=== PATIENT | female | born 1965 | race Caucasian/White ===

== ENCOUNTER 2021-09-20 08:52 | Day surgery (SDC) | payer SELFPAY ==
[~2021-09-20] VITALS: Ht 157.5 cm; Wt 95.5 kg
--- NOTE | 2021-09-20 08:50 | NUR ---
MATERIAL DAMAGE ADJUSTER contacted for fluid orders. Orders recieved.
--- NOTE | 2021-09-20 09:10 | NUR ---
56 year old patient [place] [facility] [place]. Her daughter is present to translate. Height and weight obtained. Medications and HX reviewed. Patient stated having a prior hyster. Vitals obtained. Earrings removed and placed in plastic cup with lid, given to daughter. Patient was assisted with standing and then to bed, where she was assisted with removing her clothes. Clean gown is on, along with non-slip socks. Patient continues to wear a L leg brace, trina roll wrap is visible. RN attempted two IV starts, however was unsuccessful. Pressure and bandage applied. ARCHEOLOGY PROFESSOR contacted for IV assistance. Call traore is at bedside. Patient and her daughter verbalized understanding how to use it. Side rails x2. Warm blanket provided. First and last name + verified with the patient. Procedure verified and consent signed by the patient, who verbalized understanding the procedure.
[2021-09-20 09:43] VITALS: BP 135/54; PULSE 87
[2021-09-20] MEDS ORDERED: LEVEMIR100 U/ML SQ (09:57)
[2021-09-20] MEDS ORDERED: GLUCOTROL10 MG PO (09:58)
[2021-09-20] MEDS ORDERED: CELEXA 20MG20 MG/TAB PO (09:59)
[2021-09-20] MEDS ORDERED: HCTZ 25MG TAB25 MG PO (10:00)
[2021-09-20] MEDS ORDERED: GLUCOPHAGE1000 MG PO (10:00)
[2021-09-20] MEDS ORDERED: LOTENSIN20 MG PO (10:00)
[2021-09-20] MEDS ORDERED: PRAZOSIN PO (10:02)
[2021-09-20] MEDS ORDERED: NORCO 325 MG-7.1 TAB PO (10:04)
--- NOTE | 2021-09-20 10:42 | NUR ---
FILTROSE CRUSHER in to speak with the patient.
--- NOTE | 2021-09-20 13:19 | NUR ---
Patient was assisted to bedside commode. Then back to bed.
[2021-09-20 15:45] VITALS: BP 104/52; PULSE 88; TEMP 97.7
--- NOTE | 2021-09-20 15:45 | NUR ---
Patient arrived from the PACU escorted by UBALDO Rahman. Patient is alert and oriented x3. Verbal report obtained over the phone. O2 continues at 2 L via nasal cannula. Vitals obtained. Patient denies pain. Side rails x2. Call traore is at bedside. Patient requested Sprite and buttered toast. Will continue to monitor per protocol. Daughter is present.
[2021-09-20 16:00] VITALS: BP 113/58; PULSE 84
--- NOTE | 2021-09-20 16:00 | NUR ---
Patient is tolerating her Sprite and toast well. Vitals obtained.
[2021-09-20 16:06] VITALS: TEMP 98.3
[2021-09-20 16:15] VITALS: BP 120/80; PULSE 88
--- NOTE | 2021-09-20 16:15 | NUR ---
Vitals obtained. Patient requested assistance using the commode. Patient was assisted to bedside and then to the commode. Patient successfully voided. Patient expresssed desire to be discharged. IV was discontinued at this time. Catheter tip intact. Pressure dressing applied. No swelling or redness noted. The patient denied needing RN assistance changing.
--- NOTE | 2021-09-20 16:30 | NUR ---
Discharge instructions were reviewed, along with educational material. The patient verbalized understanding and signed the related paperwork. The patient was assisted into the wheelchair and escorted down to the patient entrence by UBALDO Patton. Her daughter has the discharge packet and the patients personal belonings in the white patient belongings bag. Patient was assisted into the back of their mini-van and secured her seatbelt. Her is driving. The patient was transferred into the care of her family.
== END 2021-09-20 17:00 | disposition home or self-care (01) ==
LOC: SDCO 08:52
DX: S82.032B Displaced transverse fracture of left patella, initial encounter for open fracture type I or II (principal); E10.9 Type 1 diabetes mellitus without complications; R03.0 Elevated blood-pressure reading, without diagnosis of hypertension; F32.A Depression, unspecified; E66.9 Obesity, unspecified; E78.5 Hyperlipidemia, unspecified; F17.210 Nicotine dependence, cigarettes, uncomplicated; W00.0XXA Fall on same level due to ice and snow, initial encounter; Z79.84 Long term (current) use of oral hypoglycemic drugs; Z79.899 Other long term (current) drug therapy; Z79.4 Long term (current) use of insulin
CPT/HCPCS: J0690; J1100; J1815; J1885; J2250; J2405; J2704; J2795; J3010